=== PATIENT | female | born 1990 | race Caucasian/White ===

== ENCOUNTER 2022-06-18 10:40 | Day surgery (SDC) | payer BC, OTHER ==
[~2022-06-18] VITALS: Ht 157.5 cm; Wt 57.5 kg
--- NOTE | 2022-06-18 12:25 | NUR ---
06/18/22 1225 Jacob Humphrey BALA AREA PREPPED BY ALCE MARCANO W/ BETADINE SOLUTION. ABDOMINAL AREA PREPPED BY JACOB MARCANO WITH DURAPREP. ROPIVACAINE 0.2% 10 MLS MIXED W/ EPI 0.05 ML PER ORDER TO MAKE ROPIVACAINE 0.2% 1:200,000 FOR INJECTION AT OPSITE BY DR. GIL.
--- NOTE | 2022-06-18 13:45 | NUR ---
06/18/22 1340 AYANA PRICE REPORT GIVEN FROM LEONARD TO ME @ [id number]. PT HAVING PAIN 07/01. PT AGREED TO TAKING IBUPROFEN. 800MG GIVEN NOW. PT AT BEDSIDE. SIPPING ON ICE WATER. REFUSES FOOD AT THIS TIME.
== END 2022-06-18 14:10 | disposition home or self-care (01) ==
LOC: ORSCSDS 10:40
PROVIDERS: Obstetrics & Gynecology
PROC: 0UJD4ZZ Inspection of Uterus and Cervix, Percutaneous Endoscopic Approach (ICD-10-PCS; principal; 2022-06-18 12:00)
PROC: 0UDB7ZX Extraction of Endometrium, Via Natural or Artificial Opening, Diagnostic (ICD-10-PCS; principal; 2022-06-18 12:00)
PROC: 0UJD8ZZ Inspection of Uterus and Cervix, Via Natural or Artificial Opening Endoscopic (ICD-10-PCS; principal; 2022-06-18 12:00)
DX: R10.2 Pelvic and perineal pain (principal); N70.11 Chronic salpingitis; N92.0 Excessive and frequent menstruation with regular cycle; D25.9 Leiomyoma of uterus, unspecified; Z87.891 Personal history of nicotine dependence
CPT/HCPCS: 88305; A9270; J0171; J1100; J1885; J2250; J2370; J2405; J2704; J2795; J3010; J7120

== ENCOUNTER → 2023-02-18 | Outpatient (CLI) | payer BC, OTHER ==
[2023-02-19 16:10] LABS: HPV 16 Negative (Negative); HPV 18 Negative (Negative); HPV OTHER HR TYPES Negative (Negative)
== END | disposition home or self-care (01) ==
LOC: LAB SHORT 12:00 → LAB 12:00
PROVIDERS: Family Medicine
DX: Z01.419 Encounter for gynecological examination (general) (routine) without abnormal findings (principal)
CPT/HCPCS: 87624; G0145

== ENCOUNTER → 2024-11-24 | Outpatient (CLI) | payer BC, OTHER ==
[2024-11-28 16:33] LABS: HPV HIGH RISK BY TMA Not Detected; HPV SOURCE Cervical
== END ==
LOC: LAB SHORT 14:58 → LAB 14:58
PROVIDERS: Physician Assistant
DX: Z01.419 Encounter for gynecological examination (general) (routine) without abnormal findings (principal)
CPT/HCPCS: 87624; G0123